=== PATIENT | male | born 1950 | race Two or more races ===

== ENCOUNTER → 2019-10-11 | Emergency (ER) | payer OTHER ==
[~2019-10-11] VITALS: Ht 167.6 cm; Wt 50.8 kg
== END | disposition left against medical advice (07) ==
LOC: EDBD 10:15 → ER 10:15
DX: J06.9 Acute upper respiratory infection, unspecified (principal)

== ENCOUNTER 2020-11-13 20:45 | Inpatient (IN) | payer OTHER ==
[~2020-11-13] VITALS: Ht 175.3 cm; Wt 85.7 kg
[2020-11-15] MEDS ORDERED: KETOROLAC TROME10 MG (11:04)
[2020-11-27] MEDS ORDERED: KETOROLAC TROME10 MG (14:51)
[2020-11-27] MEDS ORDERED: DEXAMETHASONE4 MG (14:51)
[2020-11-27] MEDS ORDERED: NORFLEX100MG (14:51)
== END 2020-11-30 10:32 | disposition designated cancer center or children's hospital (05) | DRG 291 ==
LOC: ER 20:45 → ICU-2 11-14 19:07 → ICU 11-14 19:07 → MEDJ 11-25 12:06
PROVIDERS: ADMIT Internal Medicine; ATTEND Internal Medicine
PROC: BW2410Z Computerized Tomography (CT Scan) of Chest and Abdomen using Low Osmolar Contrast, Unenhanced and Enhanced (ICD-10-PCS; 2020-11-13)
PROC: B24BYZZ Ultrasonography of Heart with Aorta using Other Contrast (ICD-10-PCS; 2020-11-13)
PROC: 3E0F7SF Introduction of Other Gas into Respiratory Tract, Via Natural or Artificial Opening (ICD-10-PCS; 2020-11-15)
PROC: 02HV33Z Insertion of Infusion Device into Superior Vena Cava, Percutaneous Approach (ICD-10-PCS; 2020-11-15)
PROC: BW2410Z Computerized Tomography (CT Scan) of Chest and Abdomen using Low Osmolar Contrast, Unenhanced and Enhanced (ICD-10-PCS; 2020-11-17)
PROC: BW281ZZ Computerized Tomography (CT Scan) of Head using Low Osmolar Contrast (ICD-10-PCS; 2020-11-21)
PROC: BW40ZZZ Ultrasonography of Abdomen (ICD-10-PCS; 2020-11-22)
PROC: 4A12X4Z Monitoring of Cardiac Electrical Activity, External Approach (ICD-10-PCS; principal; 2020-11-25)
DX: I50.21 Acute systolic (congestive) heart failure (principal); R57.0 Cardiogenic shock; N17.9 Acute kidney failure, unspecified; N18.9 Chronic kidney disease, unspecified; J06.9 Acute upper respiratory infection, unspecified; I27.20 Pulmonary hypertension, unspecified; I50.811 Acute right heart failure; I34.0 Nonrheumatic mitral (valve) insufficiency; I07.1 Rheumatic tricuspid insufficiency; I48.91 Unspecified atrial fibrillation; I95.9 Hypotension, unspecified; Z20.822 Contact with and (suspected) exposure to COVID-19